=== PATIENT | male | born 1985 | race Caucasian/White ===

== ENCOUNTER → 2020-01-18 10:14 | Outpatient (CLI) | payer MEDICAID, SELFPAY ==
--- NOTE | 2020-01-18 10:15 | CA_ITS ---
APPROVED REPORT EXAM: Comprehensive 2D, Doppler, and color-flow Echocardiogram Criminal Defense Lawyer: Candi Dodd RT(R) Ht: 6 ft 2 in Wt: 243lbs BSA: 2.36 BP: 124/80 mmHg Indications: murmur, smoker, SOB, edema, obesity, history of illicit drug use, suboxone 2D Dimensions LVOT 2.15 cm (M/F) 1.5-2.5 M-Mode Dimensions RVDd 2.08 cm (0.9-2.6) LVDd 5.06 cm (3.5-5.7) LVDs 3.84 cm (3.5-5.7) IVSd 1.11 cm (0.6-1.1) PWd 0.97 cm (0.6-1.1) EF (Teich) 47.80% FS 24.10% EDV (Teich) 121.60 mL ESV (Teich) 63.50 mL LV Diastology E/A Ratio 1.28 Mitral Valve MV A Velocity 64.00 (40-130 cm/s) Left Ventricle Left atrium is normal size, left ventricle is normal size, there is no concentric left ventricular hypertrophy, visually estimated ejection fraction 55% with no regional wall motion abnormality, diastolic parameters are within normal range. Right Ventricle Right atrium and right ventricular normal size and contractility. Aortic Valve Aortic valve is grossly normal, there is no aortic stenosis or aortic insufficiency. Mitral Valve Mitral valve is grossly normal, there is mild mitral regurgitation. Tricuspid Valve Tricuspid valve grossly normal, there is mild tricuspid regurgitation, tricuspid regurgitation jet velocity is inadequate for calculation of the right ventricular systolic pressure. Pulmonic Valve Pulmonic valve is poorly visualized. Great Vessels Aortic root is normal size. Pericardium No significant pericardial effusion noted. Conclusion 1. Normal left ventricular size, preserved left ventricular systolic function, visually estimated ejection fraction 55% with no regional wall motion abnormality, diastolic parameters are within normal range. 2. Mild mitral and tricuspid regurgitation. 3. No significant pericardial effusion noted. Electronically signed by : Johnny Phelps, 01/18/2020 17:59:12
== END ==
PROVIDERS: PCP Emergency Medicine; Visit Provider Emergency Medicine
DX: R01.1 Cardiac murmur, unspecified (principal)
CPT/HCPCS: 93306

== ENCOUNTER 2020-06-29 20:10 | Emergency (ER) | payer MEDICAID, SELFPAY ==
[2020-06-29 20:10] VITALS: BP 147/86; PULSE 83; RESP 19; TEMP 37; O2SAT 98; BMI 31.9
--- NOTE | 2020-06-29 20:33 | HMH.EDUTC ---
[facility] Disposition Clinical Impression: Encounter for laboratory testing for COVID-19 virus Disposition: Home, Self-Care Condition on Discharge: Good Instructions: DI for COVID-19 (Suspected or Confirmed ), COVID-19: Testing and Tracing, Preventing the Spread of Coronavirus Discharge Instructions Additional Instructions: *Monitor Temp, Over the counter Motrin or Tylenol as directed/as needed Tylenol every 4 hours and Motrin every 6 hours (as long as your family doctor has told you that you can take it) for fever or pain. and straight to ER if unable to lower temp less than 101.0 after medication given *Warm salt water gargles may help to soothe the throat *Throat Lozenges *Warm fluids like tea with honey may help to soothe the throat *Sleep elevated *Humidifier/Vaporizer *Flonase 2 sprays in each nostril daily but be aware that it may take 2-3 days before you notice improvement Follow up IMMEDIATELY for new or worsening symptoms or no Noticeable improvement over the next 48-72 hours. 911 for difficulty breathing or swallowing You were tested for today for COVID19 your test result should be back in the next 24-48 hours, you may call to the [facility] to see if your test results are back in the next 48 hours [phone] [facility] hours are 9am-9pm You was given a handout with instructions for Self Quarantine and Self isolation for while you wait on test results and what to do if they are positive If you are positive the Health Dept will be contacting you also Prescriptions: Fluticasone Propionate [Flonase 50mcg nasal spray 16gm] 1 spr NS DAILY #1 bottle Transmission Status: Pending to [facility] Referrals: Pio Meneses MD [Primary Care Provider] - As needed Forms: Work/School Release Time of Disposition: 20:39 Medical Decision Making - Augustus Inquiry Pt receiving controlled substance: No Augustus was queried for this patient: No Vital Signs: 06/29/20 20:10 Temperature 98.6 F Temperature Source Oral Pulse Rate [Right] 83 Respiratory Rate 19 Blood Pressure [Right Arm] 147/86 H Blood Pressure Mean [Right Arm] 106 02 Sat by Pulse Oximetry 98 Orders (Tests/Meds): ORDERS Category Date Time Status Covid-19 Nasal PCR Sendout [facility] Stat Lab 06/29/20 20:29 Ordered [facility] HPI - General Stated complaint: Chest congestion,runny nose,sore throat Time Seen by Provider: 06/29/20 20:33 Description of Symptoms (Recalled from Triage Doc. by RN): pt request COVID test pt c/o body aches, chills HEENT Symptoms (Recalled from RN notes): No Resp Symptoms (Recalled from RN notes): Yes Skin Symptoms (Recalled from RN notes): No MS Symptoms (Recalled from RN notes): No Functional Status (Recalled from RN notes): wnl - History of Present Illness Provider Complaint: Patient states that he wanted to get tested for COVID States that he has been having body aches, and chills States that he isnt sure if he has been around someone with COVID or not so he came in to get tested - Related Data Home Medications Medication Instructions Recorded Confirmed buprenorphine 8 mg-naloxone 2 mg 1 tab SUBLINGUAL BID tab 12/30/19 02/03/20 sublingual tablet Previous Rx's Medication Instructions Recorded Fluticasone Propionate [Flonase 1 spr NS DAILY #1 bottle 06/29/20 50mcg nasal spray 16gm] Allergies Allergy/AdvReac Type Severity Reaction Status Date / Time Penicillins [PENICILLINS] Allergy Intermediate I-RASH Verified 06/29/20 20:23 - Worker's Comp Is this a Worker's Comp case?: No Is this an [facility] Worker's Comp?: No Is this a [facility] Worker's Comp?: No [facility] History - Hepatitis A Screen Drug use history?: Yes High risk sexual behaviors?: No History of sexually transmitted infection?: No Currently employed?: No Childcare worker?: No Do you have indoor plumbing?: Yes Do you have electricity?: Yes Attestation statement:: This patient has been screened for Hepatitis A risk factors. I have reviewe
[2020-06-29 20:40] VITALS: BP 147/86; PULSE 83; RESP 19; TEMP 37; O2SAT 98
[2020-07-01 07:42] LABS: Covid-19 Nasal PCR Sendout P&C NEGATIVE
== END 2020-06-29 20:40 | disposition home or self-care (01) ==
PROVIDERS: Emergency Provider Nurse Practitioner; PCP Emergency Medicine
DX: Z20.822 Contact with and (suspected) exposure to COVID-19 (principal); J02.9 Acute pharyngitis, unspecified; Z88.0 Allergy status to penicillin; F17.210 Nicotine dependence, cigarettes, uncomplicated
CPT/HCPCS: 99202; G0463; U0004